=== PATIENT | female | born 1990 | race Caucasian/White ===

== ENCOUNTER 2018-08-14 09:41 | Emergency (ER) | payer SELFPAY ==
[2018-08-14] MEDS ORDERED: IBUPROFEN 400 MG TAB ONE (10:30)
--- NOTE | 2018-08-14 11:02 | RAD REPORT ---
EXAM DESCRIPTION: Caroline Lopez (2 Views)08/14/2018 10:57 am CLINICAL HISTORY: Cough COMPARISON: None FINDINGS: The lungs appear clear of acute infiltrate. The heart is normal size. IMPRESSION: No acute abnormalities displayed
--- NOTE | 2018-08-14 11:05 | EDPHYS ---
Physician Documentation [facility] Name: Idalia Power Age: 28 yrs Sex: Female : 1990 Arrival Date: 08/14/2018 Time: 09:42 Bed 25 Private MD: None, None ED Physician Noel Amin HPI: 08/14 10:12 This 28 yrs old Female presents to ER via Ambulatory with complaints of rn Shortness Of Breath, Chest Tightness. 10:12 This 28 yrs old Female presents to ER via Ambulatory with complaints of rn Shortness Of Breath. 10:12 The patient has shortness of breath at rest, with light activity. Onset: The rn symptoms/episode began/occurred 2 day(s) ago. Duration: The symptoms are intermittent. The patient's shortness of breath is aggravated by coughing. Severity of symptoms: At their worst the symptoms were mild in the emergency department the symptoms are unchanged. The patient has experienced similar episodes in the past. The patient has not recently seen a physician. Reports fever, cough, congestion, runny nose, told by work she needs a doctors note so came in for eval. Reports chronic bronchitis and active smoker. . 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 - Social history:: Smoking status: Patient uses tobacco products, denies chronic smoking, but will smoke occasionally, Patient/guardian denies using alcohol, street drugs. - Ebola Screening: : Patient negative for fever greater than or equal to 101.5 degrees Fahrenheit, and additional compatible Ebola Virus Disease symptoms Patient denies exposure to infectious person Patient denies travel to an Ebola-affected area in the 21 days before illness onset No symptoms or risks identified at this time. - Family history:: not pertinent. - Hospitalizations: : No recent hospitalization is reported. ROS: 10:12 Constitutional: + fever Eyes: Negative for injury, pain, redness, and discharge, Neck: rn Negative for injury, pain, and swelling, Cardiovascular: Negative for palpitations, and edema, Respiratory: + cough and pleuritic chest pain, left side Abdomen/GI: Negative for abdominal pain, nausea, vomiting, diarrhea, and constipation, MS/Extremity: Negative for injury and deformity, Skin: Negative for injury, rash, and discoloration, Neuro: Negative for headache, weakness, numbness, tingling, and seizure. Exam: 10:12 Constitutional: This is a well developed, well nourished patient who is awake, alert, rn and in no acute distress. Talking on phone when I walked in. Head/Face: Normocephalic, atraumatic. Eyes: Pupils equal round and reactive to light, extra-ocular motions intact. Lids and lashes normal. Conjunctiva and sclera are non-icteric and not injected. Cornea within normal limits. Periorbital areas with no swelling, redness, or edema. ENT: No stridor, no oral swelling, no exudate Neck: Trachea midline, no thyromegaly or masses palpated, and no cervical lymphadenopathy. Supple, full range of motion without nuchal rigidity, or vertebral point tenderness. No Meningismus. Respiratory: Lungs have equal breath sounds bilaterally, clear to auscultation. No increased work of breathing, no retractions or nasal flaring. Skin: Warm, dry with normal turgor. Normal color with no rashes, no lesions, and no evidence of cellulitis. MS/ Extremity: Pulses equal, no cyanosis. Neurovascular intact. Full, normal range of motion. Equal circumference. Neuro: Awake and alert, GCS 15, oriented to person, place, time, and situation. Vital Signs: 10:03 BP 111 / 78; Pulse 75; Resp 14; Temp 99.1; Pulse Ox 99% on R/A; Weight 65.77 kg; Height ch 4 ft. 11 in. (149.86 cm); Pain 3/10; 11:47 BP 112 / 70; Pulse 70; Resp 16; Temp 98.9; Pulse Ox 99% on R/A; Pain 3/10; ls4 10:03 Body Mass Index 29.29 (65.77 kg, 149.86 cm) MDM: 10:07 Patient medically screened. rn 11:04 Differential diagnosis: Bronchitis pneumonia, Pneumothorax. Data reviewed: vital signs, rn nurses notes, lab test result(s), radiologic studies, plain films, and as a result, I will discharge patient. Counseling: I had a detailed discussion with the patient and/or guardian regarding: the historical points, exam findings, and any diagnostic results supporting the discharge/admit diagnosis, lab results, radiology results, the need for outpatient follow up, to return to the emergency department if symptoms worsen or persist or if there are any questions or concerns that arise at home. Special discussion: I discussed with the patient/guardian in detail that at this point there is no indication for admission to the hospital. It is understood, however, that if the symptoms persist or worsen the patient needs to return immediately for re-evaluation. 11:05 Counseling: I had a detailed discussion with the patient and/or guardian regarding: rn smoking cessation. 08/14 10:26 Order name: Flu; Complete Time: 11:02 ls4 08/14 10:08 Order name: XRAY Chest Pa And Lat (2 Views); Complete Time: 11:04 rn 08/14 11:21 Order name: EKG Electrocardiogram; Complete Time: 11:47 EDMS Administered Medications: 10:24 Drug: Motrin 800 mg Route: PO; ls4 10:52 Follow up: Response: No adverse reaction; Marked relief of symptoms ls4 Disposition: 08/14/18 11:05 Discharged to Home. Impression: Acute upper respiratory infection, unspecified. - Condition is Stable. - Discharge Instructions: Upper Respiratory Infection, Adult, Viral Respiratory Infection. - Medication Reconciliation Form, Thank You Letter, Antibiotic Education, Prescription Opioid Use, Work release form form. - Follow up: Private Physician; When: As needed; Reason: Recheck today's complaints, Re-evaluation by your physician. - Problem is new. - Symptoms are unchanged. Signatures: Dispatcher [employer] EDMS Lenore Ortiz RN RN ch Nieto, Roman, MD MD rn Stewart, Lisa, RN RN ls4 Corrections: (The following items were deleted from the chart) 11:50 11:05 08/14/2018 11:05 Discharged to Home. Impression: Acute upper respiratory ls4 infection, unspecified. Condition is Stable. Forms are Medication Reconciliation Form, Thank You Letter, Antibiotic Education, Prescription Opioid Use. Follow up: Private Physician; When: As needed; Reason: Recheck today's complaints, Re-evaluation by your physician. Problem is new. Symptoms are unchanged. rn
--- NOTE | 2018-08-14 11:05 | ER ---
Nurse's Notes [facility] Name: Idalia Power Age: 28 yrs Sex: Female : 1990 Arrival Date: 08/14/2018 Time: 09:42 Bed 25 Private MD: None, None Diagnosis: Acute upper respiratory infection, unspecified Presentation: 08/14 10:01 Presenting complaint: Patient states: hx of asthma, c/o cough, sob, green mucous for ch the past 2 days. states it hurts when she coughs, and she felt feverish yesterday. Transition of care: patient was not received from another setting of care. Onset of symptoms was August 12, 2018. Risk Assessment: Do you want to hurt yourself or someone else? Patient reports no desire to harm self or others. Initial Sepsis Screen: Does the patient meet any 2 criteria? No. Patient's initial sepsis screen is negative. Does the patient have a suspected source of infection? Yes: Productive cough/pneumonia. Care prior to arrival: None. 10:01 Method Of Arrival: Ambulatory 10:01 Acuity: GELACIO 3 ch Triage Assessment: 10:03 General: Appears in no apparent distress. comfortable, Behavior is calm, cooperative, ch appropriate for age. Pain: Complains of pain in chest Pain currently is 3 out of 10 on a pain scale. at worst was 8 out of 10 on a pain scale. Respiratory: Reports cough that is productive, Onset: The symptoms/episode began/occurred 2 days go, the patient has mild shortness of breath. 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 - Social history:: Smoking status: Patient uses tobacco products, denies chronic smoking, but will smoke occasionally, Patient/guardian denies using alcohol, street drugs. - Ebola Screening: : Patient negative for fever greater than or equal to 101.5 degrees Fahrenheit, and additional compatible Ebola Virus Disease symptoms Patient denies exposure to infectious person Patient denies travel to an Ebola-affected area in the 21 days before illness onset No symptoms or risks identified at this time. - Family history:: not pertinent. - Hospitalizations: : No recent hospitalization is reported. Screenin:22 Abuse screen: Denies threats or abuse. Denies injuries from another. Nutritional ls4 screening: No deficits noted. Nutritional screening: No deficits noted. Tuberculosis screening: No symptoms or risk factors identified. Fall Risk None identified. Assessment: 10:22 Cardiovascular: Capillary refill < 3 seconds Patient's skin is warm and dry. Rhythm is ls4 regular. Respiratory: Airway is patent Respiratory effort is even, unlabored, Breath sounds are clear bilaterally. Vital Signs: 10:03 BP 111 / 78; Pulse 75; Resp 14; Temp 99.1; Pulse Ox 99% on R/A; Weight 65.77 kg; Height 4 ft. 11 in. (149.86 cm); Pain 3/10; 11:47 BP 112 / 70; Pulse 70; Resp 16; Temp 98.9; Pulse Ox 99% on R/A; Pain 3/10; ls4 10:03 Body Mass Index 29.29 (65.77 kg, 149.86 cm) ED Course: 09:42 Patient arrived in ED. ag5 09:42 None, None is Private Physician. 5 10:02 Triage completed. 10:03 Arm band placed on left wrist. Patient placed in an exam room, on a stretcher, on pulse oximetry. EKG completed in triage. Results shown to MD. 10:06 Noel Amin MD is Attending Physician. rn 10:17 Idalia Ortiz, JOSELIN is Primary Nurse. ls4 10:22 Patient has correct armband on for positive identification. Bed in low position. Call ls4 light in reach. Side rails up X 1. 10:22 No provider procedures requiring assistance completed. Patient did not have IV access ls4 during this emergency room visit. 10:57 XRAY Chest Pa And Lat (2 Views) In Process Unspecified. EDMS Administered Medications: 10:24 Drug: Motrin 800 mg Route: PO; ls4 10:52 Follow up: Response: No adverse reaction; Marked relief of symptoms ls4 Outcome: 11:05 Discharge ordered by . rn 11:50 Patient left the ED. ls4 Signatures: Dispatcher [employer] EDMS Lenore Ortiz, RN RN ch Noel Amin MD MD rn Idalia Ortiz RN RN ls4 Christopher Leblanc [facility]
--- NOTE | 2018-08-15 06:07 | EKG ---
Test Date: 2018-08-14 Test Time: 09:57:53 Sql Engineer: TAYLOR MEASUREMENT RESULTS: Intervals: Rate: 75 CO: 134 QRSD: 74 QT: 360 QTc: 402 [place]: P: 45 CO: 134 QRS: 68 T: 62 INTERPRETIVE STATEMENTS: Sinus rhythm with sinus arrhythmia with occasional premature ventricular complexes Otherwise normal ECG Compared to ECG 07/10/2014 10:15:02 Ventricular premature complex(es) now present Electronically Signed On 08-15-18 06:04:38 COLLEGE PRESIDENT by John Murrell
== END 2018-08-14 11:50 | disposition home or self-care (01) ==
LOC: ER 09:41
DX: J06.9 Acute upper respiratory infection, unspecified (principal); J45.909 Unspecified asthma, uncomplicated; Z72.0 Tobacco use
CPT/HCPCS: 71046; 87804; 93005; 99283

== ENCOUNTER 2020-11-15 02:49 | Emergency (ER) | payer SELFPAY ==
--- NOTE | 2020-11-15 03:48 | EDPHYS ---
Physician Documentation [facility] Name: Idalia Power Age: 30 yrs Sex: Female : 1990 Arrival Date: 11/15/2020 Time: 02:51 Bed 2 Private MD: ED Physician Mian Clark HPI: 11/15 03:45 This 30 yrs old Female presents to ER via Ambulatory with complaints of Low tw4 Back Pain. 03:45 The patient presents with pain that is acute. The symptoms are located in the low back. tw4 The pain does not radiate. The problem was sustained without known cause. Onset: The symptoms/episode began/occurred today. Modifying factors: The patient symptoms are alleviated by nothing, the patient symptoms are aggravated by nothing. The patient has not experienced similar symptoms in the past. 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 - Social history:: Smoking status: Patient reports the use of cigarette tobacco products, smokes one-half pack cigarettes per day, Patient uses alcohol, occasionally. Patient/guardian denies using street drugs. ROS: 20:06 Constitutional: Negative for fever, chills, and weight loss, Eyes: Negative for injury, tw4 pain, redness, and discharge. 20:06 Cardiovascular: Negative for chest pain, palpitations, and edema, Respiratory: Negative for shortness of breath, cough, wheezing, and pleuritic chest pain, Abdomen/GI: Negative for abdominal pain, nausea, vomiting, diarrhea, and constipation, MS/Extremity: Negative for injury and deformity, Skin: Negative for injury, rash, and discoloration, Neuro: Negative for headache, weakness, numbness, tingling, and seizure. 20:06 Back: Positive for pain at rest, pain with movement, flank pain, Negative for injury or acute deformity. Exam: 03:45 Constitutional: This is a well developed, well nourished patient who is awake, alert, tw4 and in no acute distress. Head/Face: Normocephalic, atraumatic. Chest/axilla: Normal chest wall appearance and motion. Nontender with no deformity. No lesions are appreciated. Cardiovascular: Regular rate and rhythm with a normal S1 and S2. No gallops, murmurs, or rubs. Normal PMI, no JVD. No pulse deficits. Respiratory: Lungs have equal breath sounds bilaterally, clear to auscultation and percussion. No rales, rhonchi or wheezes noted. No increased work of breathing, no retractions or nasal flaring. Abdomen/GI: Soft, non-tender, with normal bowel sounds. No distension or tympany. No guarding or rebound. No evidence of tenderness throughout. Skin: Warm, dry with normal turgor. Normal color with no rashes, no lesions, and no evidence of cellulitis. MS/ Extremity: Pulses equal, no cyanosis. Neurovascular intact. Full, normal range of motion. Neuro: Awake and alert, GCS 15, oriented to person, place, time, and situation. Cranial nerves II-XII grossly intact. Motor strength 5/5 in all extremities. Sensory grossly intact. Cerebellar exam normal. Normal gait. 03:45 Back: pain, that is mild, ROM is normal, normal spinal alignment noted. Vital Signs: 03:18 BP 114 / 67; Pulse 98; Resp 20; Temp 97.9; Pulse Ox 100% on R/A; Weight 77.11 kg; ak2 Height 5 ft. (152.40 cm); 03:18 Weight 77.11 kg (R); Height 5 ft. 0 in. (152.40 cm) (R); Pain 8/10; bb 03:18 Body Mass Index 33.20 (77.11 kg, 152.40 cm) bb MDM: 03:14 Patient medically screened. tw4 03:45 Differential diagnosis: arthritis, strain, fracture. Data reviewed: vital signs, nurses tw4 notes. Data interpreted: Pulse oximetry: Interpretation: normal. Counseling: I had a detailed discussion with the patient and/or guardian regarding: the historical points, exam findings, and any diagnostic results supporting the discharge/admit diagnosis. Medical screen evaluation completed. EMTALA emergency medical condition absent. Administered Medications: No medications were administered Disposition: 11/15/20 03:47 Discharged to Home. Impression: Low back pain. - Condition is Stable. - Medication Reconciliation Form, Thank You Letter, Antibiotic Education, Prescription Opioid Use form. - Follow up: Private Physician; When: Upon discharge from the Emergency Department; Reason: Recheck today's complaints, Continuance of care, Re-evaluation by your physician. - Problem is new. - Symptoms are unchanged. Signatures: Rosy Staley RN RN Mian Medley MD MD tw4 Darien Juarez ak2 Corrections: (The following items were deleted from the chart) 03:50 03:47 11/15/2020 03:47 Discharged to Home. Impression: Low back pain. Condition is ak2 Stable. Forms are Medication Reconciliation Form, Thank You Letter, Antibiotic Education, Prescription Opioid Use. Follow up: Private Physician; When: Upon discharge from the Emergency Department; Reason: Recheck today's complaints, Continuance of care, Re-evaluation by your physician. Problem is new. Symptoms are unchanged. tw4
--- NOTE | 2020-11-15 03:48 | ER ---
Nurse's Notes [facility] Name: Idalia Power Age: 30 yrs Sex: Female : 1990 Arrival Date: 11/15/2020 Time: 02:51 Bed 2 Private MD: Diagnosis: Low back pain Presentation: 11/15 03:18 Chief complaint: Patient states: she has low back pain which started yesterday and is bb now getting worse she has felt nauseous for the last couple of hours, denies dysuria, fever, vomiting. Coronavirus screen: At this time, the client does not indicate any symptoms associated with coronavirus-19. Ebola Screen: No symptoms or risks identified at this time. Initial Sepsis Screen: Does the patient meet any 2 criteria? No. Patient's initial sepsis screen is negative. Does the patient have a suspected source of infection? No. Patient's initial sepsis screen is negative. Risk Assessment: Do you want to hurt yourself or someone else? Patient reports no desire to harm self or others. Onset of symptoms was November 14, 2020. 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 - Social history:: Smoking status: Patient reports the use of cigarette tobacco products, smokes one-half pack cigarettes per day, Patient uses alcohol, occasionally. Patient/guardian denies using street drugs. Screenin:18 Abuse screen: Denies threats or abuse. Denies injuries from another. Nutritional ak2 screening: No deficits noted. Tuberculosis screening: No symptoms or risk factors identified. Fall Risk None identified. Vital Signs: 03:18 BP 114 / 67; Pulse 98; Resp 20; Temp 97.9; Pulse Ox 100% on R/A; Weight 77.11 kg; ak2 Height 5 ft. (152.40 cm); 03:18 Weight 77.11 kg (R); Height 5 ft. 0 in. (152.40 cm) (R); Pain 8/10; bb 03:18 Body Mass Index 33.20 (77.11 kg, 152.40 cm) ED Course: 02:51 Patient arrived in ED. cf2 03:14 Deepak Alcantar, RN is Primary Nurse. jb4 03:14 Mian Clark MD is Attending Physician. tw4 03:18 Darien Juarez is Primary Nurse. ak2 03:18 No apparent distress. ak2 03:18 Patient has correct armband on for positive identification. ak2 03:18 No provider procedures requiring assistance completed. ak2 03:19 Triage completed. bb 03:20 Arm band placed on Patient placed in an exam room, on a stretcher, on pulse oximetry. bb Family accompanied patient. Administered Medications: No medications were administered Outcome: 03:47 Discharge ordered by . tw4 03:50 Following a medical screening exam, the patient was provided information regarding ak2 alternative care sites and resources available per registration personnel. 03:50 Patient left the ED. ak2 Signatures: Rosy Staley RN RN Deepak Alcantar, Mian Chun RN, MD MD 4 Aubree Katz 2 Darien Juarez ak2
[2020-11-15 03:55] VITALS: BP 114/67; TEMP 97.9; O2SAT 100
== END 2020-11-15 03:50 | disposition home or self-care (01) ==
LOC: ER 02:49
DX: M54.5 Low back pain (principal); F17.210 Nicotine dependence, cigarettes, uncomplicated
CPT/HCPCS: 99282